=== PATIENT | female | born 1985 | race Caucasian/White ===

== ENCOUNTER 2019-07-10 16:56 | Emergency (ER) | payer OTHER, SELFPAY ==
[2019-07-10] MEDS ORDERED: ONDANSETRON 4 MG/2 ML VIAL ONE ×2 (17:31→17:43)
[2019-07-10] MEDS ORDERED: NA CHLORIDE 0.9% 1,000 ML ONE ×2 (17:31→17:43)
[2019-07-10 17:42] LABS: Urine Bacteria 20-50 /HPF (<20); Urine Culture Reflex Order NOT NEEDED; Urine Mucus 2+ /HPF (NONE SEEN)
[2019-07-10 17:42] LABS: Urine Blood 2+ (NEG); Urine Glucose NEGATIVE (NEG); Urine Protein 2+ (NEG); Urine pH 8.5 (5.0-7.0)
[2019-07-10 17:58] LABS: Absolute Lymphocytes (CBC) 2.7 K/uL (0.7-4.9); Basophils % 0.4 % (0-1.3); Lymphocytes % 35.7 % (15.3-44.8); RBC Red Blood Cell Count 4.33 M/uL (3.86-4.86)
[2019-07-10] MEDS ORDERED: KETOROLAC 30 MG/ML INJ ONE (18:05)
--- NOTE | 2019-07-10 18:06 | RAD REPORT ---
EXAM DESCRIPTION: CT - Stone Protocol - 07/10/2019 5:40 pm CLINICAL HISTORY: Abdominal pain. COMPARISON: 2014 TECHNIQUE: Computed axial tomography of the abdomen pelvis was obtained without oral or IV contrast. Lack of IV and oral contrast limits evaluation of solid organs, bowel, and vessels. Coronal reformat nataly images were obtained and reviewed. All CT scans are performed using dose optimization technique as appropriate and may include automated exposure control or mA/KV adjustment according to patient size. FINDINGS: Small bilateral renal calculi. No hydronephrosis. An ureteral calculus is not noted. A christy dder calculus is not present. The liver, spleen, pancreas and adrenals appear grossly normal There is no evidence of diverticulitis. The appendix appears normal The stomach is mildly distended IMPRESSION: Bilateral nonobstructing renal calculi Mild gastric distention
[2019-07-10 18:14] LABS: ALT/SGPT 22 U/L (12-78); AST/SGOT 13 U/L (15-37); Albumin 3.1 g/dL (3.4-5.0); Alkaline Phosphatase 78 U/L (45-117); BUN Blood Urea Nitrogen 10 mg/dL (7-18); Bicarbonate 29 mmol/L (21-32); Bilirubin Direct 0.1 mg/dL (0-0.2); Bilirubin Total 0.3 mg/dL (0.2-1.0); Glucose Level 84 mg/dL (74-106); Lipase 132 U/L (73-393); Protein, Total 6.4 g/dL (6.4-8.2); Sodium Level 141 mmol/L (136-145)
[2019-07-10] MEDS ORDERED: CEFTRIAXONE/SWI 1gm 1 GM/10 ML SYR ONE (18:25)
--- NOTE | 2019-07-10 18:57 | EDPHYS ---
Physician Documentation [facility] Name: Karishma Wilde Age: 34 yrs Sex: Female : 1985 Arrival Date: 07/10/2019 Time: 16:59 Bed 25 Private MD: ED Physician Mal Crawford HPI: 07/10 17:20 This 34 yrs old Female presents to ER via Ambulatory with complaints of jmm Possible Kidney Stone. 17:20 The patient complains of pain in the left flank. Onset: The symptoms/episode jmm began/occurred gradually, 3 day(s) ago. Modifying factors: The symptoms are alleviated by nothing. the symptoms are aggravated by nothing. Associated signs and symptoms: Pertinent positives: dysuria, Pertinent negatives: fever. This is a 34 year old female with a history of anxiety and depression that presents to the ED with complaints of left flank pain and worsening dysuria over the past 3 days. Patient states having similar symptoms approx 1 month and took a course of abx. . 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 - Social history:: Smoking status: Patient/guardian denies using tobacco. - Ebola Screening: : Patient negative for fever greater than or equal to 101.5 degrees Fahrenheit, and additional compatible Ebola Virus Disease symptoms Patient denies exposure to infectious person Patient denies travel to an Ebola-affected area in the 21 days before illness onset No symptoms or risks identified at this time. ROS: 17:20 Constitutional: Negative for fever, chills, and weight loss, Cardiovascular: Negative jmm for chest pain, palpitations, and edema, Respiratory: Negative for shortness of breath, cough, wheezing, and pleuritic chest pain. 17:20 Back: Positive for flank pain. 17:20 : Positive for urinary symptoms. 17:20 All other systems are negative. Exam: 17:20 Constitutional: This is a well developed, well nourished patient who is awake, alert, jmm and in no acute distress. Head/Face: atraumatic. Eyes: EOMI, no conjunctival erythema appreciated ENT: Moist Mucus Membranes Neck: Trachea midline, Supple Chest/axilla: Normal chest wall appearance and motion. Cardiovascular: Regular rate and rhythm. No edema appreciated Respiratory: Normal respirations, no respiratory distress appreciated 17:20 Back: Normal ROM Skin: General appearance color normal MS/ Extremity: Moves all extremities, no obvious deformities appreciated, no edema noted to the lower extremities Neuro: Awake and alert, normal gait Psych: Behavior is normal, Mood is normal, Patient is cooperative and pleasant 17:20 Abdomen/GI: Inspection: abdomen appears normal, Bowel sounds: normal, Palpation: abdomen is soft and non-tender, in all quadrants. Vital Signs: 17:14 BP 149 / 92; Pulse 88; Resp 16; Pulse Ox 98% on R/A; Pain 6/10; iw 17:19 Temp 98.2(O); mg2 18:30 BP 135 / 78; Pulse 80; Resp 18; Temp 98; Pulse Ox 100% on R/A; mg2 MDM: 17:20 Patient medically screened. [facility] 18:55 Data reviewed: vital signs, nurses notes. Counseling: I had a detailed discussion with katia the patient and/or guardian regarding: the historical points, exam findings, and any diagnostic results supporting the discharge/admit diagnosis, lab results, radiology results, the need for outpatient follow up, to return to the emergency department if symptoms worsen or persist or if there are any questions or concerns that arise at home. ED course: Patient is alert and non toxic in appearance in the ED. Patient advised to follow p with pcp and otherwise given strict return precautions. Patient understood and agrees with the plan of care. . 07/10 17:18 Order name: Urine Microscopic Only; Complete Time: 17:46 [facility] [place] [place] 17:18 Order name: Urine Culture [facility] [place] 17:20 Order name: Urine Dipstick--Ancillary (enter results); Complete Time: 17:46 iw 07/10 17:20 Order name: Urine --Ancillary (enter results); Complete Time: 17:46 07/10 17:22 Order name: Basic Metabolic Panel; Complete Time: 18:27 [facility] 07/10 17:22 Order name: CBC with Diff; Complete Time: 18:08 [facility] 07/10 17:18 Order name: Urine Dipstick-Ancillary (obtain specimen); Complete Time: 17:19 [facility] [place] 07/[place] 17:18 Order name: Urine Test (obtain specimen); Complete Time: 17:18 [facility] [place] 07/[place] 17:22 Order name: Creatinine for Radiology; Complete Time: 18:27 [facility] 07/10 17:22 Order name: Hepatic Function; Complete Time: 18:27 [facility] 07/10 17:22 Order name: Lipase; Complete Time: 18:27 [facility] 07/10 17:22 Order name: CT Stone Protocol; Complete Time: 18:08 [facility] 07/10 17:22 Order name: IV Saline Lock; Complete Time: 17:40 [facility] 07/10 17:22 Order name: Labs collected and sent; Complete Time: 17:40 [facility] Administered Medications: 17:40 Drug: NS 0.9% 1000 ml Route: IV; Rate: 1 bolus; Site: left forearm; mg2 18:40 Follow up: Response: No adverse reaction; IV Status: Completed infusion; IV Intake: mg2 1000ml 17:40 Drug: Zofran 4 mg Route: IVP; Site: left forearm; mg2 18:40 Follow up: Response: No adverse reaction mg2 Disposition: 07/10/19 18:56 Discharged to Home. Impression: Urinary tract infection, site not specified. - Condition is Stable. - Discharge Instructions: Urinary Tract Infection, Adult. - Prescriptions for Zofran ODT 4 mg Oral tablet,disintegrating - place 1 tablet by TRANSLINGUAL route every 4-6 hours; 20 tablet. Macrobid 100 mg Oral Capsule - take 1 capsule by ORAL route every 12 hours for 7 days; 14 capsule. Ultracet 37.5- 325 mg Oral Tablet - take 1 tablet by ORAL route every 6 hours - for up to 5 days; do not exceed 8 tablets per day.; 20 tablet. - Medication Reconciliation Form, Thank You Letter, Antibiotic Education, Prescription Opioid Use form. - Follow up: Private Physician; When: 2 - 3 days; Reason: Recheck today's complaints, Continuance of care, Re-evaluation by your physician. Addendum: 07/16/2019 07:08 Co-signature as Attending Physician, Mal fortune n Signatures: Dispatcher [employer] Shira Rodríguez RN RN mw Mickail, Joel, PA PA jmm Williams, Irene, RN RN iw Nieto, Mal, MD MD rn Gardose, Maurizio, RN RN mg2 Corrections: (The following items were deleted from the chart) 07/10 19:14 18:56 07/10/2019 18:56 Discharged to Home. Impression: Urinary tract infection, site mw not specified. Condition is Stable. Forms are Medication Reconciliation Form, Thank You Letter, Antibiotic Education, Prescription Opioid Use. Follow up: Private Physician; When: 2 - 3 days; Reason: Recheck today's complaints, Continuance of care, Re-evaluation by your physician. katia
--- NOTE | 2019-07-10 18:57 | ER ---
Nurse's Notes [facility] Name: Karishma Wilde Age: 34 yrs Sex: Female : 1985 Arrival Date: 07/10/2019 Time: 16:59 Bed 25 Private MD: Diagnosis: Urinary tract infection, site not specified Presentation: 07/10 17:12 Presenting complaint: Patient states: has hx of kidney stones, c/o pain with urination iw X 4 days, also has left flank pain and nausea. Transition of care: patient was not received from another setting of care. Onset of symptoms was July 06, 2019. Risk Assessment: Do you want to hurt yourself or someone else? Patient reports no desire to harm self or others. Initial Sepsis Screen: Does the patient meet any 2 criteria? No. Patient's initial sepsis screen is negative. Does the patient have a suspected source of infection? No. Patient's initial sepsis screen is negative. Care prior to arrival: None. 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 - Social history:: Smoking status: Patient/guardian denies using tobacco. - Ebola Screening: : Patient negative for fever greater than or equal to 101.5 degrees Fahrenheit, and additional compatible Ebola Virus Disease symptoms Patient denies exposure to infectious person Patient denies travel to an Ebola-affected area in the 21 days before illness onset No symptoms or risks identified at this time. Screenin:56 Abuse screen: Denies threats or abuse. Denies injuries from another. Nutritional mg2 screening: No deficits noted. Tuberculosis screening: No symptoms or risk factors identified. Fall Risk IV access (20 points). Assessment: 17:53 General: Appears in no apparent distress. comfortable, Behavior is calm, cooperative. mg2 Pain: Complains of pain in left flank ans suprapubic area Pain does not radiate. Pain currently is 6 out of 10 on a pain scale. Quality of pain is described as aching, Pain began gradually. Neuro: Level of Consciousness is awake, alert, obeys commands, Oriented to person, place, time, situation. Cardiovascular: Capillary refill < 3 seconds Patient's skin is warm and dry. Respiratory: Airway is patent Respiratory effort is even, unlabored, Respiratory pattern is regular, symmetrical. GI: Bowel sounds present X 4 quads. Abd is soft and non tender Reports nausea. : Reports pain in left in suprapubic area flank(s). EENT: No signs and/or symptoms were reported regarding the EENT system. Derm: Skin is intact, is healthy with good turgor, Skin is pink, warm \T\ dry. normal. Musculoskeletal: Circulation, motion, and sensation intact. Capillary refill < 3 seconds. Vital Signs: 17:14 BP 149 / 92; Pulse 88; Resp 16; Pulse Ox 98% on R/A; Pain 6/10; iw 17:19 Temp 98.2(O); mg2 18:30 BP 135 / 78; Pulse 80; Resp 18; Temp 98; Pulse Ox 100% on R/A; mg2 ED Course: 14:35 Inserted saline lock: 22 gauge in left forearm, using aseptic technique. Blood mg2 collected. 16:59 Patient arrived in ED. mr 17:04 Adriano Pérez PA is PHCP. jmm 17:04 Mal Crawford MD is Attending Physician. jmm 17:09 Maurizio Moss, TORRI is Primary Nurse. mg2 17:13 Triage completed. iw 17:14 Arm band placed on. iw 17:41 CT Stone Protocol In Process Unspecified. EDMS 17:58 No provider procedures requiring assistance completed. mg2 17:59 Patient has correct armband on for positive identification. Pulse ox on. NIBP on. Door mg2 closed. Warm blanket given. 19:13 IV discontinued, intact, bleeding controlled, No redness/swelling at site. Pressure mg2 dressing applied. Administered Medications: 17:40 Drug: NS 0.9% 1000 ml Route: IV; Rate: 1 bolus; Site: left forearm; mg2 18:40 Follow up: Response: No adverse reaction; IV Status: Completed infusion; IV Intake: mg2 1000ml 17:40 Drug: Zofran 4 mg Route: IVP; Site: left forearm; mg2 18:40 Follow up: Response: No adverse reaction mg2 Intake: 18:40 IV: 1000ml; Total: 1000ml. mg2 Outcome: 18:56 Discharge ordered by MD. montalvo 19:13 Discharged to home ambulatory, with family. mg2 19:13 Condition: stable 19:13 Discharge instructions given to patient, family, Instructed on discharge instructions, follow up and referral plans. medication usage, Demonstrated understanding of instructions, follow-up care, medications, Prescriptions given X 19:14 Patient left the ED. mw Signatures: Dispatcher [employer] EDMS Shira Mccormack RN RN Adriano Sandoval PA PA jmm Rivera, Mary mr Williams, Irene, RN RN iw Maurizio Moss RN RN mg2
[2019-07-10 22:08] VITALS: BP 149/92; TEMP 98.2; O2SAT 98
== END 2019-07-10 19:14 | disposition home or self-care (01) ==
LOC: ER 16:56
DX: N39.0 Urinary tract infection, site not specified (principal); Z88.6 Allergy status to analgesic agent; F41.8 Other specified anxiety disorders
CPT/HCPCS: 36415; 74176; 76377; 80048; 80076; 81003; 81015; 81025; 83690; 85025; 87077; 87086; 87088; 87186; 96361; 96374; 99284; J0696; J2405; J7030

== ENCOUNTER 2019-09-08 02:53 | Emergency (ER) | payer SELFPAY ==
[2019-09-08 03:50] LABS: Absolute Lymphocytes (CBC) 2.7 K/uL (0.7-4.9); Basophils % 0.6 % (0-1.3); Hematocrit 38.5 % (36.0-45.0); Lymphocytes % 41.2 % (15.3-44.8); MPV 7.5 fL (7.6-11.3); RBC Red Blood Cell Count 4.26 M/uL (3.86-4.86)
[2019-09-08] MEDS ORDERED: MORPHINE 4 MG/ML SYR ONE (03:53)
[2019-09-08] MEDS ORDERED: CEFTRIAXONE/SWI 1gm 1 GM/10 ML SYR ONE (03:53)
[2019-09-08] MEDS ORDERED: ONDANSETRON 4 MG/2 ML VIAL ONE (03:53)
[2019-09-08] MEDS ORDERED: NA CHLORIDE 0.9% 1,000 ML ONE (03:53)
[2019-09-08 04:09] LABS: Urine Blood 2+ (NEG); Urine Glucose NEGATIVE (NEG); Urine Protein 1+ (NEG); Urine Specific Gravity >1.030 (1.005-1.030)
[2019-09-08 04:09] LABS: ALT/SGPT 23 U/L (12-78); AST/SGOT 13 U/L (15-37); Albumin 3.4 g/dL (3.4-5.0); Alkaline Phosphatase 96 U/L (45-117); BUN Blood Urea Nitrogen 17 mg/dL (7-18); Bicarbonate 29 mmol/L (21-32); Bilirubin Direct 0.1 mg/dL (0-0.2); Bilirubin Total 0.3 mg/dL (0.2-1.0); Glucose Level 83 mg/dL (74-106); Lipase 147 U/L (73-393); Potassium 4.3 mmol/L (3.5-5.1); Protein, Total 6.6 g/dL (6.4-8.2); Sodium Level 142 mmol/L (136-145)
--- NOTE | 2019-09-08 04:37 | EDPHYS ---
Physician Documentation [facility] Name: Karishma Wilde Age: 34 yrs Sex: Female : 1985 Arrival Date: 09/08/2019 Time: 02:56 Bed 8 Private MD: ED Physician Robert Callaway HPI: 09/08 03:30 This 34 yrs old Female presents to ER via Ambulatory with complaints of ma2 Kidney Stones-Bladder Pain. 03:30 The patient presents with abdominal pain. Onset: The symptoms/episode began/occurred ma2 gradually, 1 day(s) ago. Associated signs and symptoms: Pertinent negatives: anorexia, chest pain, diarrhea, fever. The symptoms are described as constant. Severity of pain: At its worst the pain was very mild in the emergency department the pain has improved. The patient has not experienced similar symptoms in the past. 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 - Coronavirus screen:: The patient has NOT traveled to [place] in the past 14 days. Proceed with normal triage process as indicated. The patient has NOT had contact with known/suspected case of Coronavirus? Proceed with normal triage procedures. - Social history:: Patient/guardian denies using street drugs, The patient lives with family, Smoking status: Patient denies any tobacco usage or history of. Patient uses street drugs, Patient/guardian denies using alcohol. - Family history:: not pertinent. - Ebola Screening: : Patient negative for fever greater than or equal to 101.5 degrees Fahrenheit, and additional compatible Ebola Virus Disease symptoms Patient denies exposure to infectious person Patient denies travel to an Ebola-affected area in the 21 days before illness onset. ROS: 03:30 Constitutional: Negative for fever, chills, and weight loss. ma2 03:30 All other systems are negative. Exam: 03:30 Constitutional: This is a well developed, well nourished patient who is awake, alert, ma2 and in no acute distress. Head/Face: Normocephalic, atraumatic. Chest/axilla: Normal chest wall appearance and motion. Nontender with no deformity. No lesions are appreciated. Cardiovascular: Regular rate and rhythm with a normal S1 and S2. No gallops, murmurs, or rubs. Normal PMI, no JVD. No pulse deficits. Respiratory: Lungs have equal breath sounds bilaterally, clear to auscultation and percussion. No rales, rhonchi or wheezes noted. No increased work of breathing, no retractions or nasal flaring. Abdomen/GI: Soft, non-tender, with normal bowel sounds. No distension or tympany. No guarding or rebound. No evidence of tenderness throughout. Back: No spinal tenderness. No costovertebral tenderness. Full range of motion. Skin: Warm, dry with normal turgor. Normal color with no rashes, no lesions, and no evidence of cellulitis. MS/ Extremity: Pulses equal, no cyanosis. Neurovascular intact. Full, normal range of motion. Neuro: Awake and alert, GCS 15, oriented to person, place, time, and situation. Cranial nerves II-XII grossly intact. Motor strength 5/5 in all extremities. Sensory grossly intact. Cerebellar exam normal. Normal gait. Vital Signs: 03:19 BP 117 / 83; Pulse 71; Resp 18; Temp 97.5(O); Pulse Ox 100% on R/A; Pain 10/10; ao 04:50 BP 125 / 75; Pulse 72; Resp 18; Pulse Ox 100% on R/A; ao MDM: 03:30 Differential diagnosis: Pyelonephritis, Ureterolithiasis, urinary tract infection. Data ma2 reviewed: vital signs, nurses notes. Counseling: I had a detailed discussion with the patient and/or guardian regarding: the historical points, exam findings, and any diagnostic results supporting the discharge/admit diagnosis, the presence of at least one elevated blood pressure reading (>120/80) during this emergency department visit, the need for outpatient follow up. Response to treatment: the patient's symptoms have resolved after treatment. 03:32 Patient medically screened. ma2 09/08 03:29 Order name: Basic Metabolic Panel; Complete Time: 04:32 ma2 09/08 03:29 Order name: CBC with Diff; Complete Time: 04:32 ma2 09/08 03:29 Order name: Creatinine for Radiology; Complete Time: 04:32 ri2 09/08 03:29 Order name: Hepatic Function; Complete Time: 04:32 ri2 09/08 03:29 Order name: Lipase; Complete Time: 04:32 ri2 09/08 03:50 Order name: Urine Dipstick--Ancillary (enter results); Complete Time: 04:32 mt 09/08 03:29 Order name: IV Saline Lock; Complete Time: 04:00 ri2 09/08 03:29 Order name: Labs collected and sent; Complete Time: 04:00 ri2 09/08 03:29 Order name: Urine Dipstick-Ancillary (obtain specimen); Complete Time: 03:59 ri2 09/08 03:50 Order name: Urine --Ancillary (enter results); Complete Time: 04:32 mt Administered Medications: 03:58 Drug: morphine 4 mg Route: IVP; Site: left antecubital; ao 04:57 Follow up: Response: No adverse reaction ao 03:58 Drug: Zofran 4 mg Route: IVP; Site: left antecubital; ao 04:57 Follow up: Response: No adverse reaction ao 03:58 Drug: Rocephin 1 grams Route: IV; Rate: calculated rate; Site: left antecubital; ao 04:58 Follow up: IV Status: Completed infusion; IV Intake: 10ml ao 04:58 Follow up: Response: No adverse reaction ao 03:59 Drug: NS 0.9% 1000 ml Route: IV; Rate: 1 bolus; Site: left antecubital; ao 04:58 Follow up: IV Status: Completed infusion; IV Intake: 1000ml ao Disposition: 09/08/19 04:36 Discharged to Home. Impression: Cystitis, unspecified without hematuria. - Condition is Stable. - Discharge Instructions: Urinary Tract Infection, Adult. - Prescriptions for Zofran 4 mg Oral Tablet - take 1 tablet by ORAL route every 12 hours As needed; 20 tablet. Bactrim DS 800- 160 mg Oral Tablet - take 1 tablet by ORAL route every 12 hours for 5 days; 20 tablet. - Medication Reconciliation Form, Thank You Letter, Antibiotic Education, Prescription Opioid Use form. - Follow up: Private Physician; When: Tomorrow; Reason: Continuance of care. Signatures: Dispatcher MedHoAlejandro Gonzales, RN RN Robert Dexter MD MD ma2 Corrections: (The following items were deleted from the chart) 05:00 04:36 09/08/2019 04:36 Discharged to Home. Impression: Cystitis, unspecified without ao hematuria. Condition is Stable. Discharge Instructions: Urinary Tract Infection, Adult. Prescriptions for Zofran 4 mg Oral Tablet - take 1 tablet by ORAL route every 12 hours As needed; 20 tablet, Bactrim DS 800-160 mg Oral Tablet - take 1 tablet by ORAL route every 12 hours for 5 days; 20 tablet. and Forms are Medication Reconciliation Form, Thank You Letter, Antibiotic Education, Prescription Opioid Use. Follow up: Private Physician; When: Tomorrow; Reason: Continuance of care. ma2
--- NOTE | 2019-09-08 04:37 | ER ---
Nurse's Notes [facility] Name: Karishma Wilde Age: 34 yrs Sex: Female : 1985 Arrival Date: 09/08/2019 Time: 02:56 Bed 8 Private MD: Diagnosis: Cystitis, unspecified without hematuria Presentation: 09/08 03:15 Presenting complaint: Patient states: Had Kidney stones in the past and it feel like ao it. Patient report lower abdominal pain and dx of Kidney stones in June last year. Transition of care: patient was not received from another setting of care. Onset of symptoms is unknown. Risk Assessment: Do you want to hurt yourself or someone else? Patient reports no desire to harm self or others. Initial Sepsis Screen: Does the patient meet any 2 criteria? No. Patient's initial sepsis screen is negative. Does the patient have a suspected source of infection? No. Patient's initial sepsis screen is negative. Care prior to arrival: None. 03:15 Method Of Arrival: Ambulatory ao 03:15 Acuity: ASHUTOSH 3 ao DIRECTOR PRINT: 03:24 LMP 09/04/2019 ao Historical: - Allergies: 03:17 Codeine; ao - Home Meds: 03:17 alprazolam 2 mg Oral tab 1 tab nightly [Active]; ao - PMHx: 03:17 Anxiety; Depression; ocd; ao - PSHx: 03:17 None; ao - Immunization history:: Adult Immunizations up to date. - Coronavirus screen:: The patient has NOT traveled to [place] in the past 14 days. Proceed with normal triage process as indicated. The patient has NOT had contact with known/suspected case of Coronavirus? Proceed with normal triage procedures. - Social history:: Patient/guardian denies using street drugs, The patient lives with family, Smoking status: Patient denies any tobacco usage or history of. Patient uses street drugs, Patient/guardian denies using alcohol. - Family history:: not pertinent. - Ebola Screening: : Patient negative for fever greater than or equal to 101.5 degrees Fahrenheit, and additional compatible Ebola Virus Disease symptoms Patient denies exposure to infectious person Patient denies travel to an Ebola-affected area in the 21 days before illness onset. Screenin:24 Abuse screen: Denies threats or abuse. Denies injuries from another. Nutritional ao screening: No deficits noted. Tuberculosis screening: No symptoms or risk factors identified. Fall Risk None identified. Assessment: 03:18 General: Appears in no apparent distress. comfortable, Behavior is calm, cooperative, ao appropriate for age. Pain: Complains of pain in right lower quadrant and left lower quadrant Pain does not radiate. Pain currently is 10 out of 10 on a pain scale. Neuro: Level of Consciousness is awake, alert, obeys commands, Oriented to person, place, time, situation, Appropriate for age Moves all extremities. Full function Speech is normal. Cardiovascular: Denies chest pain, shortness of breath. Respiratory: Airway is patent Respiratory effort is even, unlabored, Respiratory pattern is regular, symmetrical. GI: Abdomen is flat, non-distended, Reports lower abdominal pain. : No signs and/or symptoms were reported regarding the genitourinary system. EENT: No signs and/or symptoms were reported regarding the EENT system. Derm: No signs and/or symptoms reported regarding the dermatologic system. Skin is intact, Skin is pink, warm \T\ dry. Skin temperature is warm. Musculoskeletal: No signs and/or symptoms reported regarding the musculoskeletal system. 04:59 Reassessment: DC instructions given to patient. pt agree with PC and to follow up with ao PCP. Vital Signs: 03:19 BP 117 / 83; Pulse 71; Resp 18; Temp 97.5(O); Pulse Ox 100% on R/A; Pain 10/10; ao 04:50 BP 125 / 75; Pulse 72; Resp 18; Pulse Ox 100% on R/A; ao ED Course: 02:56 Patient arrived in ED. ds1 03:14 Alejandro De La Rosa, RN is Primary Nurse. ao 03:16 Triage completed. ao 03:17 Arm band placed on right wrist. Patient placed in an exam room, on a stretcher, on ao oxygen, on pulse oximetry, Patient notified of wait time. 03:24 Patient has correct armband on for positive identification. Pulse ox on. NIBP on. ao 03:28 Robert Callaway MD is Attending Physician. ma2 03:50 Inserted saline lock: 20 gauge in right antecubital area, using aseptic technique. ao Blood collected. 04:58 No provider procedures requiring assistance completed. IV discontinued, intact, ao bleeding controlled, No redness/swelling at site. Pressure dressing applied. Administered Medications: 03:58 Drug: morphine 4 mg Route: IVP; Site: left antecubital; ao 04:57 Follow up: Response: No adverse reaction ao 03:58 Drug: Zofran 4 mg Route: IVP; Site: left antecubital; ao 04:57 Follow up: Response: No adverse reaction ao 03:58 Drug: Rocephin 1 grams Route: IV; Rate: calculated rate; Site: left antecubital; ao 04:58 Follow up: IV Status: Completed infusion; IV Intake: 10ml ao 04:58 Follow up: Response: No adverse reaction ao 03:59 Drug: NS 0.9% 1000 ml Route: IV; Rate: 1 bolus; Site: left antecubital; ao 04:58 Follow up: IV Status: Completed infusion; IV Intake: 1000ml ao Intake: 04:58 IV: 1000ml; Total: 1000ml. ao 04:58 IV: 10ml; Total: 1010ml. ao Outcome: 04:36 Discharge ordered by . ma2 04:59 Discharged to home ambulatory. ao 04:59 Condition: stable 04:59 Discharge instructions given to patient, Instructed on discharge instructions, follow up and referral plans. Demonstrated understanding of instructions, follow-up care, medications, Prescriptions given X 2. 05:00 Patient left the ED. ao Signatures: Karla Sotomayor Alex, RN RN Robert Dexter MD MD ma2
[2019-09-08 06:07] VITALS: TEMP 97.5; O2SAT 100
[2019-09-08 06:08] VITALS: BP 125/75
== END 2019-09-08 05:00 | disposition home or self-care (01) ==
LOC: ER 02:53
DX: N30.90 Cystitis, unspecified without hematuria (principal); F34.1 Dysthymic disorder; Z88.5 Allergy status to narcotic agent
CPT/HCPCS: 36415; 80048; 80076; 81003; 81025; 83690; 85025; 96365; 96375; 99284; J0696; J2405; J7030

== ENCOUNTER 2019-12-05 01:36 | Emergency (ER) | payer OTHER, SELFPAY ==
[2019-12-05 02:26] LABS: Urine Blood 3+ (NEG); Urine Glucose NEGATIVE (NEG); Urine Protein 2+ (NEG); Urine Specific Gravity >1.030 (1.005-1.030)
[2019-12-05 02:51] LABS: RBC Red Blood Cell Count 4.18 M/uL (3.86-4.86)
[2019-12-05 02:52] LABS: Absolute Lymphocytes (CBC) 2.9 K/uL (0.7-4.9); Hematocrit 37.8 % (36.0-45.0); Lymphocytes % 40.4 % (15.3-44.8); MPV 7.9 fL (7.6-11.3)
[2019-12-05] MEDS ORDERED: CEFTRIAXONE/SWI 1gm 1 GM/10 ML SYR ONE (03:01)
[2019-12-05] MEDS ORDERED: ONDANSETRON 4 MG/2 ML VIAL ONE (03:01)
[2019-12-05] MEDS ORDERED: KETOROLAC 30 MG/ML INJ ONE (03:01)
[2019-12-05] MEDS ORDERED: NA CHLORIDE 0.9% 1,000 ML ONE (03:02)
[2019-12-05 03:10] LABS: ALT/SGPT 16 U/L (12-78); AST/SGOT 10 U/L (15-37); Albumin 3.2 g/dL (3.4-5.0); Alkaline Phosphatase 63 U/L (45-117); BUN Blood Urea Nitrogen 13 mg/dL (7-18); Bicarbonate 27 mmol/L (21-32); Bilirubin Direct < 0.1 mg/dL (0-0.2); Bilirubin Total 0.2 mg/dL (0.2-1.0); Glucose Level 84 mg/dL (74-106); Lipase 149 U/L (73-393); Potassium 3.9 mmol/L (3.5-5.1); Protein, Total 7.1 g/dL (6.4-8.2); Sodium Level 142 mmol/L (136-145)
--- NOTE | 2019-12-05 04:36 | ER ---
Nurse's Notes [facility] Name: Karishma Wilde Age: 34 yrs Sex: Female : 1985 Arrival Date: 12/05/2019 Time: 01:39 Bed 7 Private MD: Diagnosis: Dysuria;Urinary tract infection, site not specified;Hematuria Presentation: 12/04 01:42 Onset of symptoms was December 05, 2019. Care prior to arrival: None. sg 01:42 Acuity: ASHUTOSH 3 sg 02:19 Chief complaint: Patient states: HAVING PAIN IN URINATION. WITH HISTORY OF KIDNEY rv STONES, DIAGNOSED JUNE OF LAST YEAR. YESTERDAY STARTED HAVING NAUSEA AND NOTICED BLOOD IN URINE TODAY. Coronavirus screen: Coronavirus screen: Proceed with normal triage. Ebola Screen: No symptoms or risks identified at this time. Initial Sepsis Screen: Does the patient meet any 2 criteria? No. Patient's initial sepsis screen is negative. Does the patient have a suspected source of infection? No. Patient's initial sepsis screen is negative. Risk Assessment: Do you want to hurt yourself or someone else? Patient reports no desire to harm self or others. 02:19 Method Of Arrival: Ambulatory rv Historical: - Allergies: 01:42 Codeine; sg - PMHx: 01:42 Anxiety; Depression; ocd; sg - PSHx: 01:42 None; sg - Immunization history:: Adult Immunizations up to date. - Social history:: Smoking status: Patient denies any tobacco usage or history of. - Family history:: not pertinent. Screenin:19 Abuse screen: Denies threats or abuse. Denies injuries from another. Nutritional rv screening: No deficits noted. Tuberculosis screening: No symptoms or risk factors identified. Fall Risk None identified. Assessment: 02:14 General: Appears uncomfortable, Behavior is calm, cooperative. Pain: Complains of pain rv in right low back Pain currently is 7 out of 10 on a pain scale. Quality of pain is described as aching. Neuro: Level of Consciousness is awake, alert, obeys commands, Oriented to person, place, time, situation. Cardiovascular: Patient's skin is warm and dry. Respiratory: Airway is patent. : Reports burning with urination, pain with urination, Pain is 7 out of 10 on a pain scale. Derm: Skin is intact. Vital Signs: 02:19 BP 106 / 66; Pulse 94; Resp 17; Temp 98.4(O); Pulse Ox 100% ; rv 03:30 BP 107 / 63; Pulse 87; Resp 17; Pulse Ox 99% on R/A; rv 04:47 BP 105 / 66; Pulse 84; Resp 16; Temp 98.3; Pulse Ox 99% on R/A; rv ED Course: 01:39 Patient arrived in ED. ds1 01:40 José Manuel Zhou MD is Attending Physician. cristino 01:42 Triage completed. sg 01:42 Arm band placed on. sg 02:12 Denver Orosco, RN is Primary Nurse. rv 02:23 Patient has correct armband on for positive identification. Pulse ox on. NIBP on. rv 02:50 Inserted saline lock: 22 gauge in left forearm, using aseptic technique. Missed rv attempt(s): 22 gauge in left wrist. 03:57 CT Stone Protocol In Process Unspecified. EDMS 04:35 Jessee Vasquez MD is Referral Physician. cristino 04:49 No provider procedures requiring assistance completed. IV discontinued, intact, rv bleeding controlled, No redness/swelling at site. Pressure dressing applied. Administered Medications: 02:59 Drug: NS 0.9% 1000 ml Route: IV; Rate: 1 bolus; Site: left forearm; rv 04:48 Follow up: IV Status: Completed infusion; IV Intake: 1000ml rv 02:59 Drug: Rocephin 1 grams Route: IV; Rate: per protocol; Site: left forearm; rv 04:48 Follow up: IV Status: Completed infusion rv 02:59 Drug: Zofran (Ondansetron) 4 mg Route: IVP; Site: left forearm; rv 04:49 Follow up: Response: No adverse reaction rv 03:00 Drug: TORadol 30 mg Route: IVP; Site: left forearm; rv 04:48 Follow up: Response: No adverse reaction rv 04:49 Drug: LevOfloxacin 500 mg Route: PO; rv 04:49 Follow up: Response: Medication administered at discharge. rv Intake: 04:48 IV: 1000ml; Total: 1000ml. rv Outcome: 04:35 Discharge ordered by . cristino 04:50 Discharged to home ambulatory. rv 04:50 Condition: good 04:50 Discharge instructions given to patient, Instructed on discharge instructions, follow up and referral plans. medication usage, Demonstrated understanding of instructions, follow-up care, medications, Prescriptions given X 4. 04:50 Patient left the ED. rv Addendum: 12/08/2019 07:51 Addendum: Culture Results: Positive urine culture. No further action required. Bacteria h b sensitive to prescribed antibiotic. Signatures: Dispatcher [employer] EDMS Abiodun Cannon RN RN José Manuel Marrero MD MD cha Sanford, Demi ds1 Annemarie Jarvis RN RN hb Vicente, Ronaldo, RN RN rv Corrections: (The following items were deleted from the chart) 12/04 04:49 04:48 Response: Medication administered at discharge. rv rv
--- NOTE | 2019-12-05 04:36 | EDPHYS ---
Physician Documentation [facility] Name: Karishma Wilde Age: 34 yrs Sex: Female : 1985 Arrival Date: 12/05/2019 Time: 01:39 Bed 7 Private MD: PAMELA Physician José Manuel Zhou HPI: 12/04 02:23 This 34 yrs old Female presents to ER via Unassigned with complaints of Blood cristino In Urine, Kidney Stone. 02:23 The patient presents with abdominal pain. Onset: The symptoms/episode began/occurred 2 cristino day(s) ago. The patient complains of pain in the left low back, left mid back, right mid back and right low back. The pain radiates to the left low back, left mid back, right mid back and right low back. Onset: The symptoms/episode began/occurred yesterday. Modifying factors: The symptoms are alleviated by nothing. the symptoms are aggravated by nothing. The symptoms do not radiate. Associated signs and symptoms: Pertinent positives: dysuria, fever, hematuria, nausea. Modifying factors: The symptoms are alleviated by nothing, the symptoms are aggravated by nothing. Historical: - Allergies: 01:42 Codeine; sg - PMHx: 01:42 Anxiety; Depression; ocd; sg - PSHx: 01:42 None; sg - Immunization history:: Adult Immunizations up to date. - Social history:: Smoking status: Patient denies any tobacco usage or history of. - Family history:: not pertinent. ROS: 02:23 Constitutional: Negative for fever, chills, and weight loss, Eyes: Negative for injury, cristino pain, redness, and discharge, ENT: Negative for injury, pain, and discharge, Neck: Negative for injury, pain, and swelling, Cardiovascular: Negative for chest pain, palpitations, and edema, Respiratory: Negative for shortness of breath, cough, wheezing, and pleuritic chest pain, : Negative for injury, bleeding, discharge, and swelling, MS/Extremity: Negative for injury and deformity, Skin: Negative for injury, rash, and discoloration, Neuro: Negative for headache, weakness, numbness, tingling, and seizure, Psych: Negative for depression, anxiety, suicide ideation, homicidal ideation, and hallucinations, Allergy/Immunology: Negative for hives, rash, and allergies, Endocrine: Negative for neck swelling, polydipsia, polyuria, polyphagia, and marked weight changes, Hematologic/Lymphatic: Negative for swollen nodes, abnormal bleeding, and unusual bruising. 02:23 Abdomen/GI: Positive for abdominal pain, abdominal cramps. 02:23 Back: Positive for decreased range of motion, pain at rest, flank pain, bilaterally. Exam: 02:23 Constitutional: This is a well developed, well nourished patient who is awake, alert, cristino and in no acute distress. Head/Face: Normocephalic, atraumatic. Eyes: Pupils equal round and reactive to light, extra-ocular motions intact. Lids and lashes normal. Conjunctiva and sclera are non-icteric and not injected. Cornea within normal limits. Periorbital areas with no swelling, redness, or edema. ENT: Nares patent. No nasal discharge, no septal abnormalities noted. Tympanic membranes are normal and external auditory canals are clear. Oropharynx with no redness, swelling, or masses, exudates, or evidence of obstruction, uvula midline. Mucous membranes moist. Neck: Trachea midline, no thyromegaly or masses palpated, and no cervical lymphadenopathy. Supple, full range of motion without nuchal rigidity, or vertebral point tenderness. No Meningismus. Chest/axilla: Normal chest wall appearance and motion. Nontender with no deformity. No lesions are appreciated. Cardiovascular: Regular rate and rhythm with a normal S1 and S2. No gallops, murmurs, or rubs. Normal PMI, no JVD. No pulse deficits. Respiratory: Lungs have equal breath sounds bilaterally, clear to auscultation and percussion. No rales, rhonchi or wheezes noted. No increased work of breathing, no retractions or nasal flaring. Abdomen/GI: Soft, non-tender, with normal bowel sounds. No distension or tympany. No guarding or rebound. No evidence of tenderness throughout. Back: No spinal tenderness. No costovertebral tenderness. Full range of motion. Skin: Warm, dry with normal turgor. Normal color with no rashes, no lesions, and no evidence of cellulitis. MS/ Extremity: Pulses equal, no cyanosis. Neurovascular intact. Full, normal range of motion. Neuro: Awake and alert, GCS 15, oriented to person, place, time, and situation. Cranial nerves II-XII grossly intact. Motor strength 5/5 in all extremities. Sensory grossly intact. Cerebellar exam normal. Normal gait. Psych: Awake, alert, with orientation to person, place and time. Behavior, mood, and affect are within normal limits. Vital Signs: 02:19 BP 106 / 66; Pulse 94; Resp 17; Temp 98.4(O); Pulse Ox 100% ; rv 03:30 BP 107 / 63; Pulse 87; Resp 17; Pulse Ox 99% on R/A; rv 04:47 BP 105 / 66; Pulse 84; Resp 16; Temp 98.3; Pulse Ox 99% on R/A; rv MDM: 02:03 Patient medically screened. cristino 02:26 Differential diagnosis: UTI, appendicitis, bowel obstruction, diverticulitis, cristino non-specific abd pain. Data reviewed: vital signs, nurses notes, lab test result(s), radiologic studies, CT scan. Data interpreted: groundwater monitoring technician: not applicable for this patient encounter. Pulse oximetry: on room air is 100 %. Counseling: I had a detailed discussion with the patient and/or guardian regarding: the historical points, exam findings, and any diagnostic results supporting the discharge/admit diagnosis, lab results, radiology results, the need for outpatient follow up. Medication response: Zofran partially relieved the patient's nausea. 02:54 Test interpretation: by ED physician or midlevel provider: ct stone. [facility] 04:33 ED course: ct stone bilateral nephrolithiasis no hydrnephrosis. [facility] 12/04 02:12 Order name: Urine Dipstick--Ancillary (enter results); Complete Time: 02:27 [facility] 12/04 02:12 Order name: Urine --Ancillary (enter results); Complete Time: 02:27 [facility] 12/04 02:23 Order name: Basic Metabolic Panel; Complete Time: 03:23 [facility] 12/04 02:23 Order name: CBC with Diff; Complete Time: 02:54 [facility] 12/04 02:23 Order name: Hepatic Function; Complete Time: 03:23 [facility] 12/04 02:23 Order name: Lipase; Complete Time: 03:23 [facility] 12/04 02:23 Order name: IV Saline Lock; Complete Time: 03:00 [facility] 12/04 02:23 Order name: CT Stone Protocol [facility] 12/04 02:28 Order name: Urine Culture [facility] 12/04 02:23 Order name: Labs collected and sent; Complete Time: 03:00 [facility] Administered Medications: 02:59 Drug: NS 0.9% 1000 ml Route: IV; Rate: 1 bolus; Site: left forearm; rv 04:48 Follow up: IV Status: Completed infusion; IV Intake: 1000ml rv 02:59 Drug: Rocephin 1 grams Route: IV; Rate: per protocol; Site: left forearm; rv 04:48 Follow up: IV Status: Completed infusion rv 02:59 Drug: Zofran (Ondansetron) 4 mg Route: IVP; Site: left forearm; rv 04:49 Follow up: Response: No adverse reaction rv 03:00 Drug: TORadol 30 mg Route: IVP; Site: left forearm; rv 04:48 Follow up: Response: No adverse reaction rv 04:49 Drug: LevOfloxacin 500 mg Route: PO; rv 04:49 Follow up: Response: Medication administered at discharge. rv Disposition: 12/05/19 04:35 Discharged to Home. Impression: Dysuria, Urinary tract infection, site not specified, Hematuria. - Condition is Stable. - Discharge Instructions: Dysuria, Urinary Tract Infection, Adult, Urinary Tract Infection, Adult, [id number]. - Prescriptions for Levaquin 500 mg Oral Tablet - take 1 tablet by ORAL route once daily for 7 days; 7 tablet. Pyridium 200 mg Oral Tablet - take 1 tablet by ORAL route every 8 hours for 3 days; 9 tablet. Zofran 4 mg Oral Tablet - take 1 tablet by ORAL route every 12 hours As needed; 14 tablet. Tramadol 50 mg Oral Tablet - take 1 tablet by ORAL route every 8 hours as needed; 20 tablet. - Medication Reconciliation Form, Thank You Letter, Antibiotic Education, Prescription Opioid Use form. - Follow up: Private Physician; When: 2 - 3 days; Reason: Recheck today's complaints, Continuance of care, Re-evaluation by your physician. Follow up: Jessee Vasquez; When: 2 - 3 days; Reason: Recheck today's complaints, Re-evaluation by your physician. - Problem is new. - Symptoms have improved. Signatures: Dispatcher [employer] Abiodun De Luna RN RN José Manuel Marrero MD MD cha Vicente, Ronaldo RN RN rv Corrections: (The following items were deleted from the chart) 04:50 04:35 12/05/2019 04:35 Discharged to Home. Impression: Dysuria; Urinary tract rv infection, site not specified; Hematuria. Condition is Stable. Discharge Instructions: Dysuria, Urinary Tract Infection, Adult, Urinary Tract Infection, Adult, [id number]. Prescriptions for Levaquin 500 mg Oral Tablet - take 1 tablet by ORAL route once daily for 7 days; 7 tablet, Pyridium 200 mg Oral Tablet - take 1 tablet by ORAL route every 8 hours for 3 days; 9 tablet, Zofran 4 mg Oral Tablet - take 1 tablet by ORAL route every 12 hours As needed; 14 tablet, Tramadol 50 mg Oral Tablet - take 1 tablet by ORAL route every 8 hours as needed; 20 tablet. and Forms are Medication Reconciliation Form, Thank You Letter, Antibiotic Education, Prescription Opioid Use. Follow up: Private Physician; When: 2 - 3 days; Reason: Recheck today's complaints, Continuance of care, Re-evaluation by your physician. Follow up: Jessee Vasquez; When: 2 - 3 days; Reason: Recheck today's complaints, Re-evaluation by your physician. Problem is new. Symptoms have improved. cristino
[2019-12-05] MEDS ORDERED: levoFLOXacin 500 MG TAB ONE (04:47)
[2019-12-05 05:50] VITALS: O2SAT 99
[2019-12-05 05:52] VITALS: BP 105/66; TEMP 98.3
--- NOTE | 2019-12-05 19:41 | RAD REPORT ---
EXAM DESCRIPTION: CT - Stone Protocol - 12/05/2019 3:57 am CLINICAL HISTORY: Abd pain;Flank pain COMPARISON: None. TECHNIQUE: CT ABDOMEN PELVIS WITHOUT IV CONTRAST on 12/05/2019 2:23 AM CDT This exam was performed according to our departmental dose-optimization program, which includes autom ated exposure control, adjustment of the mA and/or kV according to patient size and/or use of iterati ve reconstruction technique. FINDINGS: Lower lungs are clear. Abdomen: The liver is normal in appearance. There is no biliary dilatation. Gallbladder is normal in appearance. The pancreas and spleen are normal in appearance. Adrenal glands are normal. There is a 2 mm mid to upper pole right renal calculus without hydronephrosis. There are at least three left jaclyn l calculi measuring up to 2 mm. Abdominal aorta is normal in course and caliber without aneurysm. There is no free air. There is no r etroperitoneal adenopathy. Pelvis: There is no bowel obstruction. Urinary bladder is unremarkable. There is no free fluid. Uteru s is normal in size. Appendix is normal. Skeleton: There are no acute osseous findings. No suspicious bony lesions. IMPRESSION: Bilateral nephrolithiasis without hydronephrosis. Electronically signed by: Holland Garza MD 12/05/2019 4:06 AM CDT Due to temporary technical issues with the PACS/Fluency reporting system, reports are being signed by the in house radiologist as a courtesy to ensure prompt reporting. The interpreting radiologist is f ully responsible for the content of the report.
== END 2019-12-05 04:50 | disposition home or self-care (01) ==
LOC: ER 01:36
DX: N39.0 Urinary tract infection, site not specified (principal); R31.9 Hematuria, unspecified; Z88.5 Allergy status to narcotic agent
CPT/HCPCS: 96365; 87088; 85025; 87086; 80048; 36415; 81025; 80076; 87077; 87186; 81003; 83690; 76377; 74176; 96375; 99284; 96366; J0696; J7030; J2405

== ENCOUNTER 2021-03-04 16:35 | Emergency (ER) | payer OTHER ==
--- OUTSIDE RECORDS SUMMARY | 2021-03-04 16:37 | XMS REPORT | Continuity of Care Document ---
:1985 Author Organization [facility] t Address [address] [place] [address] Care Team Providers Name Role Phone Lab, Fam Pob I Attending Clinician Unavailable Problems This patient has no known problems. Allergies, Adverse Reactions, Alerts This patient has no known allergies or adverse reactions. Medications This patient has no known medications. Procedures This patient has no known procedures. Encounters Start End Encounter Admission Attending Care Care Encounter Source Date/Time Date/Time Type Type Clinicians Facility Department ID 2020-08-26 2020-08-26 Laboratory Lab, [facility] [id number] 15:07:14 15:27:14 Only Fam Pob I [facility] [id number] [place] [id number] [place] [id number] [address] Results This patient has no known results.
[2021-03-04 18:11] LABS: Urine Blood Negative (Negative); Urine Glucose Negative (Negative); Urine Protein Negative (Negative); Urine Specific Gravity 1.015 (1.005-1.030)
[2021-03-04 19:39] LABS: Absolute Lymphocytes (CBC) 1.8 K/uL (0.7-4.9); Basophils % 1.2 % (0-1.3); Hematocrit 38.9 % (36.0-45.0); Lymphocytes % 35.1 % (15.3-44.8); MPV 7.4 fL (7.6-11.3); RBC Red Blood Cell Count 4.24 M/uL (3.86-4.86)
[2021-03-04 19:48] LABS: ALT/SGPT 21 U/L (12-78); AST/SGOT 10 U/L (15-37); Albumin 3.6 g/dL (3.4-5.0); Alkaline Phosphatase 107 U/L (45-117); BUN Blood Urea Nitrogen 12 mg/dL (7-18); Bicarbonate 30 mmol/L (21-32); Bilirubin Direct < 0.1 mg/dL (0-0.2); Bilirubin Total 0.2 mg/dL (0.2-1.0); Glucose Level 72 mg/dL (74-106); Lipase 188 U/L (73-393); Potassium 4.3 mmol/L (3.5-5.1); Protein, Total 7.1 g/dL (6.4-8.2); Sodium Level 143 mmol/L (136-145)
[2021-03-04] MEDS ORDERED: PROMETHAZINE INJ 25 MG/ML AMP ONE (19:58)
[2021-03-04] MEDS ORDERED: KETOROLAC 30 MG/ML INJ ONE (19:58)
[2021-03-04] MEDS ORDERED: NA CHLORIDE 0.9% 1,000 ML ONE (19:58)
[2021-03-04] MEDS ORDERED: MORPHINE 4 MG/ML SYR ONE (19:58)
--- NOTE | 2021-03-04 20:34 | RAD REPORT ---
EXAM DESCRIPTION: CT - Stone Protocol - 03/04/2021 7:54 pm CLINICAL HISTORY: FLANK PAIN COMPARISON: Stone Protocol dated 12/05/2019 TECHNIQUE: Axial 3 mm thick images were obtained without oral or IV contrast. The [id number] span s the entirety of the system including uppermost abdomen and lung bases. All CT scans are performed using dose optimization technique as appropriate and may include automated exposure control or mA/KV adjustment according to patient size. FINDINGS: Minimal dilatation of the right ureter is seen without an obstructing calculus identifiabl e. There are no bladder calculi seen. Patient has numerous phleboliths in the pelvis. No left-sided h ydronephrosis. Bilateral nonobstructing calyx calculi are present with only a single 1- 2 mm calcific ation on the right. No suspicious renal masses. Isodense masses and pyelonephritis are not excluded o n a stone protocol CT scan. No significant adrenal finding. No urinary bladder suspicious finding. Imaged portions of the liver, spleen and pancreas show no suspicious findings on non-contrast imaging . Gallbladder is tightly contracted. No biliary tree dilatation. No suspicious bowel findings. Appendix is normal. Stool volume is moderate. No active GI process seen . Uterus and ovaries show no suspicious findings. No hernia, mass or bulky lymphadenopathy noted. No free air, free fluid or inflammatory stranding. No significant bony abnormality. IMPRESSION: Patient has mild dilatation of the right collecting system but no obstructing calculus p resent. No bladder calculus is seen. Dilatation could be from a recently passed stone. Blood or infla mmatory debris within the collecting system can cause dilatation. Patient has bilateral nonobstructing calculi with only a single punctate calcification on the right. Isodense masses and pyelonephritis are not excluded on stone protocol technique.
--- NOTE | 2021-03-04 20:55 | EDPHYS ---
Physician Documentation [facility] Name: Karishma Wilde Age: 36 yrs Sex: Female : 1985 Arrival Date: 03/04/2021 Time: 16:39 Bed DIS8 Private MD: ED Physician Vishal Valentine HPI: 03/04 19:15 This 36 yrs old Female presents to ER via Ambulatory with complaints of mh7 Possible Kidney Stone, Urinary Problem. 19:15 The patient complains of pain in the right flank. The pain radiates to the abdomen. mh7 Onset: The symptoms/episode began/occurred 5 day(s) ago. Modifying factors: The symptoms are alleviated by nothing. the symptoms are aggravated by movement, palpation/percussion. Associated signs and symptoms: Pertinent positives: hematuria, Pertinent negatives: diarrhea, dizziness, dysuria, fever, urinary frequency, headache, nausea, pain radiating to the lower extremities, vomiting. Severity of pain: At its worst the pain was moderate yesterday, in the emergency department the pain is unchanged. The patient has experienced similar episodes in the past, multiple times. VP CLINICAL RESEARCH: 16:45 LMP 03/01/2021 ss Historical: - Allergies: 16:52 Codeine; ss - PMHx: 16:52 Anxiety; Depression; ocd; kidney stones; ss - PSHx: 16:52 None; ss - Immunization history:: Client reports having NOT received the Covid vaccine. - Social history:: Smoking status: Patient denies any tobacco usage or history of. ROS: 19:15 Constitutional: Negative for fever, chills, and weight loss, Eyes: Negative for injury, mh7 pain, redness, and discharge, ENT: Negative for injury, pain, and discharge, Neck: Negative for injury, pain, and swelling, Cardiovascular: Negative for chest pain, palpitations, and edema, Respiratory: Negative for shortness of breath, cough, wheezing, and pleuritic chest pain, Abdomen/GI: Negative for abdominal pain, nausea, vomiting, diarrhea, and constipation, MS/Extremity: Negative for injury and deformity, Skin: Negative for injury, rash, and discoloration, Neuro: Negative for headache, weakness, numbness, tingling, and seizure, Psych: Negative for depression, anxiety, suicide ideation, homicidal ideation, and hallucinations, Allergy/Immunology: Negative for hives, rash, and allergies, Endocrine: Negative for neck swelling, polydipsia, polyuria, polyphagia, and marked weight changes, Hematologic/Lymphatic: Negative for swollen nodes, abnormal bleeding, and unusual bruising. Exam: 19:15 Constitutional: This is a well developed, well nourished patient who is awake, alert, mh7 and in no acute distress. Head/Face: Normocephalic, atraumatic. Eyes: Pupils equal round and reactive to light, extra-ocular motions intact. Lids and lashes normal. Conjunctiva and sclera are non-icteric and not injected. Cornea within normal limits. Periorbital areas with no swelling, redness, or edema. Neck: Trachea midline, no thyromegaly or masses palpated, and no cervical lymphadenopathy. Supple, full range of motion without nuchal rigidity, or vertebral point tenderness. No Meningismus. Chest/axilla: Normal chest wall appearance and motion. Nontender with no deformity. No lesions are appreciated. Cardiovascular: Regular rate and rhythm with a normal S1 and S2. No gallops, murmurs, or rubs. Normal PMI, no JVD. No pulse deficits. Respiratory: Lungs have equal breath sounds bilaterally, clear to auscultation and percussion. No rales, rhonchi or wheezes noted. No increased work of breathing, no retractions or nasal flaring. 19:15 Skin: Warm, dry with normal turgor. Normal color with no rashes, no lesions, and no evidence of cellulitis. MS/ Extremity: Pulses equal, no cyanosis. Neurovascular intact. Full, normal range of motion. Neuro: Awake and alert, GCS 15, oriented to person, place, time, and situation. Cranial nerves II-XII grossly intact. Motor strength 5/5 in all extremities. Sensory grossly intact. Cerebellar exam normal. Normal gait. Psych: Awake, alert, with orientation to person, place and time. Behavior, mood, and affect are within normal limits. 19:15 Abdomen/GI: Inspection: abdomen appears normal, Bowel sounds: normal, in all quadrants, Palpation: mild abdominal tenderness, in the suprapubic area, mass, is not appreciated, rebound tenderness, is not appreciated, voluntary guarding, is not appreciated, involuntary guarding, is not appreciated, no appreciated organomegaly, Rectal exam: the exam is deferred, because of patient request, Indicators: McBurney's point is not tender, Potter's sign is negative, Rovsing's sign is negative, Obturator sign is negative, Psoas sign is negative, Liver: no appreciated palpable abnormalities, Hernia: not appreciated. 19:15 Back: ROM is normal, normal spinal alignment noted, CVA tenderness, that is moderate, is noted on the right, muscle spasm, is not present. Vital Signs: 16:45 BP 116 / 78 LA Sitting (auto/reg); Pulse 72; Resp 16 S; Temp 98.5(O); Pulse Ox 99% on ss R/A; Weight 61.23 kg (R); Height 5 ft. 2 in. (157.48 cm) (R); Pain 10/10; 16:45 Body Mass Index 24.69 (61.23 kg, 157.48 cm) ss MDM: 20:48 Differential diagnosis: nephrolithiasis, pyelonephritis, UTI. Data reviewed: [facility] signs, nurses notes, old medical records, lab test result(s), CBC, electrolytes, urinalysis, UPT: negative radiologic studies, CT scan. Data interpreted: Pulse oximetry: on room air is 99 %. Interpretation: normal. Counseling: I had a detailed discussion with the patient and/or guardian regarding: the historical points, exam findings, and any diagnostic results supporting the discharge/admit diagnosis, lab results, radiology results, the need for outpatient follow up, a urologist, to return to the emergency department if symptoms worsen or persist or if there are any questions or concerns that arise at home. Response to treatment: the patient's symptoms have markedly improved after treatment. 20:54 Patient medically screened. [facility] 03/04 17:34 Order name: Basic Metabolic Panel [facility] 03/04 17:34 Order name: CBC with Diff [facility] 03/04 17:34 Order name: Hepatic Function [facility] 03/04 17:34 Order name: Lipase [facility] 03/04 17:35 Order name: Basic Metabolic Panel; Complete Time: 19:54 EDMS 03/04 17:35 Order name: CBC with Automated Diff; Complete Time: 19:54 EDMS 03/04 17:35 Order name: Liver (Hepatic) Function; Complete Time: 19:54 EDMS 03/04 17:35 Order name: Lipase; Complete Time: 19:54 EDCT 03/04 18:11 Order name: Urine Dipstick-Ancillary; Complete Time: 19:16 EDCT 03/04 19:27 Order name: Urine --Ancillary (enter results) 2 03/04 19:27 Order name: Urine --Ancillary [facility] 03/04 19:27 Order name: CT Stone Protocol; Complete Time: 20:42 7 03/04 17:34 Order name: Urine Dipstick-Ancillary (obtain specimen); Complete Time: 18:11 tw4 03/04 17:34 Order name: Urine Test (obtain specimen); Complete Time: 18:11 4 03/04 17:34 Order name: IV Saline Lock; Complete Time: 19:09 4 03/04 17:34 Order name: Labs collected and sent; Complete Time: 19:09 tw4 Administered Medications: 19:40 Drug: Ketorolac 30 mg Route: IVP; Site: left antecubital; em 19:40 Drug: NS 0.9% 1000 ml Route: IV; Rate: 1000 ml; Site: left antecubital; em 21:15 Follow up: IV Status: Completed infusion; IV Intake: 1000ml em 20:05 Drug: Phenergan (promethazine) 12.5 mg Route: IVP; Site: left antecubital; em 21:15 Follow up: Response: No adverse reaction em 20:06 Drug: morphine 4 mg Route: IVP; Site: left antecubital; em 21:16 Follow up: Response: No adverse reaction; Marked relief of symptoms em Disposition Summary: 03/04/21 20:54 Discharge Ordered Location: Home [facility] Problem: an acute exacerbation 7 Symptoms: have improved mh7 Condition: Stable 7 Diagnosis - Nephrolithiasis 7 Followup: 7 - With: Private Physician - When: 1 - 2 days - Reason: Worsening of condition, Recheck today's complaints, Continuance of care, Re-evaluation by your physician Followup: 7 - With: Saúl Jolly MD - When: 1 - 2 days - Reason: Worsening of condition, Recheck today's complaints Discharge Instructions: - Discharge Summary Sheet 7 - Kidney Stones, [id number] 7 - Dietary Guidelines to Help Prevent Kidney Stones [facility] Forms: - Medication Reconciliation Form mh7 - Thank You Letter mh7 - Antibiotic Education 7 - Prescription Opioid Use [facility] Prescriptions: - ketorolac 10 mg Oral tablet - take 1 tablet by ORAL route every 6 hours As needed not to exceed 40 mg in 7 24hrs; 12 tablet; Refills: 0, Product Selection Permitted - Tramadol 50 mg Oral Tablet - take 1 tablet by ORAL route every 8 hours As needed as needed; 12 tablet; mh7 Refills: 0, Product Selection Permitted - promethazine 25 mg Oral Tablet - take 1 tablet by ORAL route every 6 hours As needed; 10 tablet; Refills: 0, 7 Product Selection Permitted Signatures: Dispatcher [employer] Gil Ennis RN RN em Smirch, Shelby, RN RN ss Wadley, Terrence, MD MD tw4 Vishal Valentine MD MD 7 Corrections: (The following items were deleted from the chart) 16:53 16:52 Allergies: Codeine; [facility]
--- NOTE | 2021-03-04 20:55 | ER ---
Nurse's Notes [facility] Name: Karishma Wilde Age: 36 yrs Sex: Female : 1985 Arrival Date: 03/04/2021 Time: 16:39 Bed DIS8 Private MD: Diagnosis: Nephrolithiasis Presentation: 03/04 16:51 Chief complaint: Patient states: R flank pain x 4-5 days. HX of multiple bilateral ss kidney stones. Coronavirus screen: Client denies travel out of the [place] in the last 14 days. Ebola Screen: Patient denies exposure to infectious person. Patient denies travel to an Ebola-affected area in the 21 days before illness onset. Initial Sepsis Screen: Does the patient meet any 2 criteria? No. Patient's initial sepsis screen is negative. Does the patient have a suspected source of infection? No. Patient's initial sepsis screen is negative. Risk Assessment: Do you want to hurt yourself or someone else? Patient reports no desire to harm self or others. Onset of symptoms was February 28, 2021. 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 - Social history:: Smoking status: Patient denies any tobacco usage or history of. Screenin:24 Abuse screen: Denies threats or abuse. Nutritional screening: No deficits noted. em Tuberculosis screening: No symptoms or risk factors identified. Fall Risk None identified. Assessment: 19:40 General: Appears in no apparent distress. comfortable, Behavior is calm, cooperative, em appropriate for age. Pain: Complains of pain in back Pain currently is 10 out of 10 on a pain scale. Neuro: Level of Consciousness is awake, alert, obeys commands, Oriented to person, place, time, situation. Cardiovascular: Capillary refill < 3 seconds Patient's skin is warm and dry. Respiratory: Airway is patent Respiratory effort is even, unlabored, Respiratory pattern is regular, symmetrical. GI: Abdomen is flat. Derm: Skin is intact, is healthy with good turgor, Skin is pink, warm \T\ dry. Musculoskeletal: Capillary refill < 3 seconds, Range of motion: intact in all extremities. Vital Signs: 16:45 BP 116 / 78 LA Sitting (auto/reg); Pulse 72; Resp 16 S; Temp 98.5(O); Pulse Ox 99% on ss R/A; Weight 61.23 kg (R); Height 5 ft. 2 in. (157.48 cm) (R); Pain 10/10; 16:45 Body Mass Index 24.69 (61.23 kg, 157.48 cm) ED Course: 16:39 Patient arrived in ED. mr 16:52 Triage completed. ss 16:52 Arm band placed on right wrist. ss 19:10 Inserted saline lock: 20 gauge in left antecubital area, using aseptic technique. Blood dh4 collected. 19:15 Vishal Valentine MD is Attending Physician. 7 19:23 Gil Rowe, RN is Primary Nurse. em 19:24 Patient has correct armband on for positive identification. em 19:54 CT Stone Protocol In Process Unspecified. EDMS 20:53 Saúl Jolly MD is Referral Physician. 7 21:15 No provider procedures requiring assistance completed. IV discontinued, intact, em bleeding controlled, No redness/swelling at site. Pressure dressing applied. Administered Medications: 19:40 Drug: Ketorolac 30 mg Route: IVP; Site: left antecubital; em 19:40 Drug: NS 0.9% 1000 ml Route: IV; Rate: 1000 ml; Site: left antecubital; em 21:15 Follow up: IV Status: Completed infusion; IV Intake: 1000ml em 20:05 Drug: Phenergan (promethazine) 12.5 mg Route: IVP; Site: left antecubital; em 21:15 Follow up: Response: No adverse reaction em 20:06 Drug: morphine 4 mg Route: IVP; Site: left antecubital; em 21:16 Follow up: Response: No adverse reaction; Marked relief of symptoms em Intake: 21:15 IV: 1000ml; Total: 1000ml. em Outcome: 20:54 Discharge ordered by . mh7 21:15 Discharged to home ambulatory. em 21:15 Condition: improved 21:15 Discharge instructions given to patient, Instructed on discharge instructions, follow up and referral plans. medication usage, Demonstrated understanding of instructions, follow-up care, medications, Prescriptions given X 3. 21:16 Patient left the ED. em Signatures: Dispatcher [employer] Suri ScruggsGil, RN TORRI Celsa Kramer RN RN Walter Alas 4 Vishal Valentine MD MD 7 Corrections: (The following items were deleted from the chart) 16:48 16:45 Pulse 72bpm; Resp 16bpm; Spontaneous; Pulse Ox 99% RA; Temp 98.5F Oral; 61.23 kg ss Reported; Height 5 ft. 2 in. Reported; BMI: 24.6; Pain 10/10; ss 16:53 16:52 Allergies: Codeine; ss ss
[2021-03-04 22:09] LABS: Urine Specific Gravity/Preg 1.015 (1.005-1.030)
[2021-03-04 22:14] VITALS: BP 116/78; TEMP 98.5; O2SAT 99
== END 2021-03-04 21:16 | disposition home or self-care (01) ==
LOC: ER 16:35
DX: N20.0 Calculus of kidney (principal); Z87.442 Personal history of urinary calculi; Z88.5 Allergy status to narcotic agent
CPT/HCPCS: 96361; 85025; 80048; 36415; 81025; 80076; 81003; 83690; 76377; 74176; 96375; 96374; 99284; J2550; J7030

== ENCOUNTER 2021-03-21 04:20 | Emergency (ER) | payer OTHER ==
--- OUTSIDE RECORDS SUMMARY | 2021-03-21 04:23 | XMS REPORT | Continuity of Care Document ---
:1985 Author Organization [facility] t Address [address] [place] [address] Care Team Providers Name Role Phone Lab, [...] Facility Department ID 2020-08-26 2020-08-26 Laboratory Lab, [facility] [id number] 15:07:14 15:27:14 Only Fam Pob I [facility] [id number] [place] [id number] [place] [phone] [address] Results This patient has no known results.
--- NOTE | 2021-03-21 07:07 | EDPHYS ---
Physician Documentation [facility] Name: Karishma Wilde Age: 36 yrs Sex: Female : 1985 Arrival Date: 03/21/2021 Time: 04:26 Bed 22 Private MD: ED Physician Robert Callaway HPI: 03/21 05:09 This 36 yrs old Female presents to ER via Ambulatory with complaints of ma2 Cough, Sore Throat. 05:09 The patient or guardian reports cough. Onset: The symptoms/episode began/occurred ma2 gradually, 2 day(s) ago. Severity of symptoms: At their worst the symptoms were mild, in the emergency department the symptoms are unchanged. Associated signs and symptoms: Pertinent positives: rhinorrhea, Pertinent negatives: ear ache, sore throat, vomiting. The patient has experienced a previous episode. 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 - Social history:: Smoking status: Patient denies any tobacco usage or history of. Patient/guardian denies using alcohol, street drugs, The patient lives with family. - Family history:: not pertinent, pertinent for. ROS: 05:09 Constitutional: Negative for fever, chills, and weight loss. ma2 05:09 All other systems are negative. Exam: 05:09 Constitutional: This is a well developed, well nourished patient who is awake, alert, ma2 and in no acute distress. Head/Face: Normocephalic, atraumatic. Eyes: Pupils equal round and reactive to light, extra-ocular motions intact. Lids and lashes normal. Conjunctiva and sclera are non-icteric and not injected. Cornea within normal limits. Periorbital areas with no swelling, redness, or edema. ENT: Nares patent. No nasal discharge, no septal abnormalities noted. Tympanic membranes are normal and external auditory canals are clear. Oropharynx with no redness, swelling, or masses, exudates, or evidence of obstruction, uvula midline. Mucous membranes moist. Neck: Trachea midline, no thyromegaly or masses palpated, and no cervical lymphadenopathy. Supple, full range of motion without nuchal rigidity, or vertebral point tenderness. No Meningismus. Chest/axilla: Normal chest wall appearance and motion. Nontender with no deformity. No lesions are appreciated. Cardiovascular: Regular rate and rhythm with a normal S1 and S2. No gallops, murmurs, or rubs. Normal PMI, no JVD. No pulse deficits. Respiratory: Lungs have equal breath sounds bilaterally, clear to auscultation and percussion. No rales, rhonchi or wheezes noted. No increased work of breathing, no retractions or nasal flaring. Abdomen/GI: Soft, non-tender, with normal bowel sounds. No distension or tympany. No guarding or rebound. No evidence of tenderness throughout. Vital Signs: 04:46 BP 133 / 97; Pulse 89; Resp 18; Temp 97.5; Pulse Ox 99% on R/A; Weight 61.23 kg; Height em 5 ft. 2 in. (157.48 cm); 04:46 Body Mass Index 24.69 (61.23 kg, 157.48 cm) em MDM: 04:55 Patient medically screened. [facility] 05:09 Differential Diagnosis: Bronchitis Influenza Upper Respiratory Infection Sinusitis ma2 Pharyngitis. 07:03 Data reviewed: vital signs, nurses notes. Counseling: I had a detailed discussion with ma2 the patient and/or guardian regarding: the historical points, exam findings, and any diagnostic results supporting the discharge/admit diagnosis, the presence of at least one elevated blood pressure reading (>120/80) during this emergency department visit, the need for outpatient follow up. Response to treatment: the patient's symptoms have markedly improved after treatment. 03/21 07:02 Order name: SARS-COV-2 RT PCR; Complete Time: 07:03 EDMS Administered Medications: No medications were administered Disposition Summary: 03/21/21 07:07 Discharge Ordered Location: Home ma2 Condition: Stable ma2 Diagnosis - Acute upper respiratory infection, unspecified ma2 Followup: ma2 - With: Private Physician - When: Today - Reason: Continuance of care Discharge Instructions: - Discharge Summary Sheet ma2 - Upper Respiratory Infection, Adult ma2 Forms: - Medication Reconciliation Form ma2 - Thank You Letter ma2 - Antibiotic Education ma2 - Prescription Opioid Use ma2 Signatures: Dispatcher [employer] EDGil Vergara, RN RN Robert Caraballo MD MD ma2 Corrections: (The following items were deleted from the chart) 05:24 05:07 CORONAVIRUS+Z ordered. EDMS EDMS
--- NOTE | 2021-03-21 07:07 | ER ---
Nurse's Notes [facility] Name: Karishma Wilde Age: 36 yrs Sex: Female : 1985 Arrival Date: 03/21/2021 Time: 04:26 Bed 22 Private MD: Diagnosis: Acute upper respiratory infection, unspecified Presentation: 03/21 04:46 Chief complaint: Patient states: sore throat, cough and stuffy nose that started a few em hours ago. Coronavirus screen: Vaccine status: Patient reports being unvaccinated. Ebola Screen: Patient negative for fever greater than or equal to 101.5 degrees Fahrenheit, and additional compatible Ebola Virus Disease symptoms Patient denies exposure to infectious person. Patient denies travel to an Ebola-affected area in the 21 days before illness onset. No symptoms or risks identified at this time. Initial Sepsis Screen: Does the patient meet any 2 criteria? No. Patient's initial sepsis screen is negative. Does the patient have a suspected source of infection? No. Patient's initial sepsis screen is negative. Risk Assessment: Do you want to hurt yourself or someone else? Patient reports no desire to harm self or others. Onset of symptoms was March 21, 2021. 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 - Social history:: Smoking status: Patient denies any tobacco usage or history of. Patient/guardian denies using alcohol, street drugs, The patient lives with family. - Family history:: not pertinent, pertinent for. Screenin:17 Abuse screen: Denies threats or abuse. Denies injuries from another. Nutritional ms4 screening: No deficits noted. Tuberculosis screening: No symptoms or risk factors identified. Fall Risk None identified. Assessment: 05:16 Reassessment: Patient appears in no apparent distress at this time. No changes from ms4 previously documented assessment. General: Appears in no apparent distress. Behavior is calm, cooperative. Pain: Complains of pain in throat. Respiratory: Reports cough that is Airway is patent Respiratory effort is even, unlabored, Breath sounds are clear. EENT: Throat is clear. Vital Signs: 04:46 BP 133 / 97; Pulse 89; Resp 18; Temp 97.5; Pulse Ox 99% on R/A; Weight 61.23 kg; Height em 5 ft. 2 in. (157.48 cm); 04:46 Body Mass Index 24.69 (61.23 kg, 157.48 cm) em ED Course: 04:26 Patient arrived in ED. bp1 04:47 Triage completed. em 04:47 Arm band placed on. em 04:55 Robert Callaway MD is Attending Physician. ma2 05:17 No provider procedures requiring assistance completed. ms4 07:15 Tariq Francis, RN is Primary Nurse. ch5 Administered Medications: No medications were administered Outcome: 07:07 Discharge ordered by MD. ma2 07:28 Discharged to home ambulatory. ch5 07:28 Condition: good 07:28 Discharge instructions given to patient. 07:29 Patient left the ED. ch5 Signatures: Gil Rowe, RN RN Robert Callaway MD MD ma2 Chloe Chadwick [facility] Maggie Mcwilliams RN RN ms4 Tariq Francis, RN RN ch5 Corrections: (The following items were deleted from the chart) 05:24 05:20 CORONAVIRUS+ drawn and sent. ms4 EDMS
[2021-03-21 07:34] VITALS: BP 133/97; TEMP 97.5; O2SAT 99
== END 2021-03-21 07:29 | disposition home or self-care (01) ==
LOC: ER 04:20
DX: J06.9 Acute upper respiratory infection, unspecified (principal); F41.8 Other specified anxiety disorders; Z20.822 Contact with and (suspected) exposure to COVID-19; Z88.5 Allergy status to narcotic agent
CPT/HCPCS: 99281; U0003

== ENCOUNTER 2025-05-07 10:31 | Emergency (ER) | payer OTHER, SELFPAY ==
[2025-05-07] MEDS ORDERED: KETOROLAC 30 MG/ML INJ ONE (11:01)
[2025-05-07] MEDS ORDERED: LORAZEPAM 0.5 MG TABLET ONE (11:02)
[2025-05-07] MEDS ORDERED: ALPRAZOLAM 1 MG TABLET ONE (11:02)
--- NOTE | 2025-05-07 12:24 | RAD REPORT ---
Procedure: Chest Single View HISTORY: Cough COMPARISON: none FINDINGS: The lungs appear clear of acute infiltrate. No significant pleural effusion noted. The heart is normal size. IMPRESSION: No acute abnormality is displayed.
--- NOTE | 2025-05-07 12:24 | RAD REPORT ---
Exam:Hand Left 3 View CLINICAL HISTORY: Left hand pain FINDINGS: No fracture or dislocation seen No bone or joint abnormality noted
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
[2025-05-07 14:51] VITALS: BP 151/111; O2SAT 99
== END 2025-05-07 13:08 | disposition home or self-care (01) ==
LOC: ER 10:31
DX: S60.222A Contusion of left hand, initial encounter (principal); R07.89 Other chest pain; M79.661 Pain in right lower leg; V49.40XA Driver injured in collision with unspecified motor vehicles in traffic accident, initial encounter
CPT/HCPCS: 93005; 71045; 73130; 96372; 99284; J1885